=== PATIENT | female | born 1970 | race American Indian/Alaskan Native ===

== ENCOUNTER 2020-05-21 06:34 | Day surgery (SDC) | payer MEDICARE ==
[~2020-05-21 06:34] MED LIST: MIDAZOLAM 2 MG/2 ML INJ IV NR; SODIUM CHLORIDE 0.9% 1000 ML 1,000 ML IV SCH; fentaNYL 100 MCG/2 ML INJ IV PRN
[2020-05-21] MEDS ORDERED: DEXTROSE 50% IN WATER (25GM) 50 ML SYRINGE IV ONE (07:29)
[2020-05-21 07:41] LABS: Hematocrit 25.6 % (30.3-42.9); Hemoglobin 8.5 gm/dl (10.1-14.3); Mean Corpuscular HGB Conc 33 % (30-34); Mean Corpuscular Volume 86 fl (79-97); Platelet Count 149 K/mm3 (140-440); Red Blood Count 2.96 M/mm3 (3.65-5.03); Red Cell Distribution Width 17.1 % (13.2-15.2)
[2020-05-21 07:51] LABS: Calcium 9.1 mg/dL (8.4-10.2)
[2020-05-21] MEDS ORDERED: LIDOCAINE MPF (2%) 20 MG/1 ML VIAL 5 ML ONE (07:53)
[2020-05-21] MEDS ORDERED: fentaNYL 100 MCG/2 ML INJ ONE (07:53)
[2020-05-21] MEDS ORDERED: propofoL 200 MG/20 ML VIAL IV ONE (07:54)
[2020-05-21] MEDS ORDERED: fentaNYL 100 MCG/2 ML INJ IV PRN (08:15)
[2020-05-21] MEDS ORDERED: ONDANSETRON 4 MG/2 ML INJ IV PRN (08:15)
--- NOTE | 2020-05-21 08:15 | Anesthesia Consultation ---
Anesthesia Consult and Med Hx Date of service: 05/21/20 - Airway Anesthetic Teeth Evaluation: Good ROM Head & Neck: Adequate Mental/Hyoid Distance: Adequate Mallampati Class: Class III Intubation Access Assessment: Possibly Difficult - Pulmonary Exam CTA: Yes - Cardiac Exam Cardiac Exam: RRR - Pre-Operative Health Status ASA Pre-Surgery Classification: ASA3 Proposed Anesthetic Plan: General (Patient requests GA) - Pulmonary Hx Smoking: No Hx Asthma: Yes Hx Respiratory Symptoms: Yes (chronic bronchitis/cough; no recent change in symptoms) Home Oxygen Therapy: No Hx Sleep Apnea: Yes (no CPAP) - Cardiovascular System Hx Hypertension: No (on midodrine q2-3hrs for hypotension) Hx Heart Attack/AMI: No Hx Percutaneous Transluminal Coronary Angioplasty (PTCA): No Hx Cardia Arrhythmia: No - Central Nervous System CVA: No Hx Back Pain: Yes (AND NECK) Hx Psychiatric Problems: Yes - Gastrointestinal Hx Gastroesophageal Reflux Disease: No - Endocrine Hx End Stage Renal Disease: Yes (last HD 05/20/20) Hx Liver Disease: No Hx Insulin Dependent Diabetes: Yes Hx Thyroid Disease: No - Hematic Hx Anemia: Yes - Other Systems Hx Substance Use: Yes (THC) Hx Cancer: Yes (hx renal Ca) Hx Obesity: Yes (BMI 41) - Additional Comments Anesthesia Medical History Comments: No hx anesthetic complications. Hx hypercoagulable disorder, currently on eliquis.
--- NOTE | 2020-05-21 08:15 | Anesthesia Day of Surgery ---
Anesthesia Day of Surgery - Day of Surgery Patient Examined: Yes Patient H&P Reviewed: Yes Patient is NPO: Yes
[2020-05-21] MEDS ORDERED: LIDOCAINE (1%) 10 MG/1 ML VIAL 20 ML MDV ONE (10:05)
[2020-05-21] MEDS ORDERED: BUPIVACAINE/PF (0.5%) 5 MG/1 ML 10 ML VIAL INFILTRATI ONE ×2 (10:05→11:09)
[2020-05-21] MEDS ORDERED: SODIUM CHLORIDE 0.45% 0 ML IV ONE (10:06)
[2020-05-21] MEDS ORDERED: PAPAVERINE 60 MG/2 ML INJ SDV ONE (10:06)
[2020-05-21] MEDS ORDERED: PROTAMINE SULFATE 50 MG/5 ML INJ ONE (10:06)
[2020-05-21] MEDS ORDERED: SODIUM CHLORIDE P/F VIAL 10 ML 0 ML ONE (10:07)
[2020-05-21] MEDS ORDERED: SODIUM CHLORIDE 0.9% 250ML 250 ML ONE (10:07)
[2020-05-21] MEDS ORDERED: SODIUM BICARBONATE 2 MEQ/2 ML SYRINGE ONE (10:07)
[2020-05-21] MEDS ORDERED: rifAMPin 600 MG VIAL ONE (10:07)
[2020-05-21] MEDS ORDERED: HEPARIN 10,000 UNITS/10 ML VIAL ONE (10:07)
[2020-05-21] MEDS ORDERED: NITROGLYCERIN SYRINGE 3 ML ONE (10:08)
[2020-05-21] MEDS ORDERED: ePHEDrine SULFATE 50 MG/1 ML INJ ONE (10:38)
[2020-05-21] MEDS ORDERED: HEPARIN 10,000 UNITS/10 ML VIAL IV ONE (11:09)
[2020-05-21] MEDS ORDERED: SODIUM CHLORIDE 0.9% 250 ML IVPB IV ONE (11:09)
[2020-05-21] MEDS ORDERED: SODIUM CHLORIDE 0.9% IRR 1,500 ML BOTTLE IR ONE (11:09)
[2020-05-21] MEDS ORDERED: ONDANSETRON 4 MG/2 ML INJ ONE (12:28)
--- NOTE | 2020-05-21 12:36 | Short Stay Summary ---
Short Stay Documentation Date of service: 05/21/20 Narrative H&P: See H&P - History H&P: obtained from office - Allergies and Medications Current Medications: Allergies aspirin Allergy (Severe, Verified 05/20/20 12:48) Anaphylaxis bee venom protein (honey bee) Allergy (Severe, Verified 05/20/20 12:49) Anaphylaxis Penicillins Allergy (Severe, Verified 05/20/20 12:47) Anaphylaxis Sulfa (Sulfonamide Antibiotics) Allergy (Severe, Verified 05/20/20 12:48) Anaphylaxis ibuprofen [From Motrin] Adverse Reaction (Severe, Verified 05/19/20 15:51) Swelling PERCOCET-MAKES HER CRAZY Adverse Reaction (Intermediate, Uncoded 05/19/20 15:51) Unknown Home Medications Medication Instructions Recorded Confirmed Last Taken Type ALBUTEROL NEB's 1 dose IH PRN PRN 05/19/20 05/19/20 Unknown History ARIPiprazole [Abilify TAB] 5 mg PO HS 05/19/20 05/21/20 05/20/20 19:00 History Albuterol Sulfate [Proventil Hfa] 6.7 gm IH PRN PRN 05/19/20 05/19/20 Unknown History Calcitriol 5 cap PO TID 05/19/20 05/21/20 05/20/20 19:00 History Cinacalcet HCl [Sensipar] 1 tab PO QHS 05/19/20 05/21/20 05/20/20 19:00 History Cinacalcet HCl [Sensipar] 1 tab PO QHS 05/19/20 05/21/20 05/20/20 20:00 History Eliquis 5 mg PO BID 05/19/20 05/21/20 05/21/20 05:00 History Fludrocortisone [Florinef Tab] 0.2 mg PO BID 05/19/20 05/21/20 05/21/20 05:00 History Gabapentin 100 mg PO TID 05/19/20 05/21/20 05/20/20 19:00 History Heparin 3 units DAILY 05/19/20 05/21/20 05/20/20 09:00 History Humalog 3 units HEMOD-PORT HS 05/19/20 05/19/20 Unknown History Midodrine 15 mg PO TID 05/19/20 05/21/20 05/21/20 08:45 History Mirtazapine [Remeron] 30 mg PO QHS 05/19/20 05/21/20 05/20/20 19:00 History Pantoprazole 40 mg PO DAILY 05/19/20 05/21/20 05/20/20 09:00 History Renvela 3 tab PO TIDAC 05/19/20 05/21/20 05/20/20 19:00 History Symbicort 160-4.5 Mcg Inhaler 160 mg PO BID 05/19/20 05/21/20 05/20/20 18:00 History Vit B Comp No.3/Folic/C/Biotin 1 tab PO DAILY 05/19/20 05/21/20 05/20/20 09:00 History [Nydia-Binu Rx Tablet] Zyloprim 40 mg PO DAILY 05/19/20 05/21/20 05/20/20 09:00 History clonazePAM 2 mg PO TID 05/19/20 05/21/20 05/20/20 19:00 History Active Medications Fentanyl (Fentanyl 100 Mcg/2 Ml Inj) 100 mcg IV ONCE PRN PRN Reason: sedation for nerve block Stop: 05/21/20 23:59 Fentanyl (Fentanyl 100 Mcg/2 Ml Inj) 50 mcg IV Q5MIN PRN PRN Reason: Pain , Severe (7-10) Stop: 05/21/20 23:00 Clindamycin HCl (Cleocin 900 Mg/50 Ml) 900 mg in 50 mls @ 100 mls/hr IV PREOP DIAZ; Protocol Stop: 05/21/20 23:01 Sodium Chloride (Nacl 0.9% 1000 Ml) 1,000 mls @ 42 mls/hr IV DIRECT DIAZ Stop: 05/21/20 23:59 Last Admin: 05/21/20 07:45 Dose: 42 mls/hr Documented by: Midazolam HCl (Midazolam 2 Mg/2 Ml Inj) 2 mg IV PREOP NR Stop: 05/21/20 23:59 Last Admin: 05/21/20 08:55 Dose: 2 mg Documented by: Ondansetron HCl (Ondansetron 4 Mg/2 Ml Inj) 4 mg IV ONCE PRN PRN Reason: Nausea And Vomiting Stop: 05/21/20 18:00 - Brief post op/procedure progress note Date of procedure: 05/21/20 Pre-op diagnosis: End-Stage Renal Disease Post-op diagnosis: same Procedure: Creation of Left Kobe Arteriovenous Fistula Anesthesia: GETA Surgeon: LIZABETH STANFORD Estimated blood loss: 50-100ml Pathology: none Condition: stable - Disposition Condition at discharge: Good Disposition: DC-01 TO HOME OR SELFCARE Short Stay Discharge Plan Activity: other (No heavy lifting with left arm for 2 weeks. Use stress ball with left hand as often as possible.) Wound: open to air, keep clean and dry, other (Okay to wash the wound with soap and water but do not soak in water for 2 weeks.) Follow up with: LIZABETH STANFORD MD [Staff Physician] - 14 Days Prescriptions: HYDROcodone/APAP 7.5-325 [[place] 7.5/325] 1 each PO Q6HR PRN #30 tablet PRN Reason: Pain
--- NOTE | 2020-05-21 12:40 | Operative Report ---
Operative Report Operative Report: Date of procedure: 05/21/2020 Pre-operative diagnosis: End-Stage Renal Disease Post-operative diagnosis: End-Stage Renal Disease Procedure(s): Creation of Left Kobe Fistula Surgeon: Luis Felipe Chu MD Loop Puller: None Anesthesia: General Endotracheal Anesthesia EBL: Minimal Counts: Correct Complications: None Condition: Stable Findings: Successful creation of left arm AV fistula Specimen: None Indication: The patient is a 50-year-old female with a history of end-stage renal disease who is currently on hemodialysis through a right femoral permacath. She is in need of long-term dialysis access and was found to be a suitable candidate for creation of a left arm arteriovenous fistula. She was given the risk, benefits, and alternative procedures and consented to the procedure. Description of Procedure: The patient was brought to the operating room and laid in supine position after general endotracheal anesthesia was achieved his left arm was prepped and draped in normal sterile fashion. Longitudinal incision was then created on the distal wrist centered over the cephalic vein and a second incision was created in longitudinal fashion over the radial artery. The radial artery was dissected out circumferentially and controlled with vessel loops. The cephalic vein was then dissected out circumferentially, ligating side branches and dividing them, and then a tunnel was created to transpose it over to the radial artery. A 3 Escobar was then advanced through the cephalic vein proximally to ensure patency. The vein was then flushed with heparinized saline and control of the bulldog clamp. The radial artery vessel loops were put on tension occluding flow, and then an 11 blade and Marino scissors used to create an arteriotomy. An end-to-side anastomosis created between the cephalic vein and the radial artery using a single 6-0 Prolene in running fashion. Prior to completing the anastomosis I flushed the artery both retrograde and antegrade and advanced a 3 Escobar into the proximal portion of the artery to break the spasm. I then completed the anastomosis and removed all clamps allowing flow into the fistula which had an excellent thrill. I anesthetized wound using 0.5% Marcaine plain. Then closed the wounds in 2 layers using a 3-0 Vicryl running fashion the deep dermal layer, 4-0 Monocryl in a running fashion the subcuticular layer, and Surgicel as a dressing. The patient tolerated the procedure well, all sponge, needle, and instrument counts were correct, the patient was taken to recovery in stable condition.
[2020-05-21] MEDS ORDERED: HYDROcodone/ACETAMINOPHEN 7.5-325MG TAB ONE (12:49)
[2020-05-21] MEDS ORDERED: HYDROmorphone 1 MG/1 ML INJ ONE (12:49)
[2020-05-21] MEDS ORDERED: HYDROmorphone 1 MG/1 ML INJ IV PRN (12:55)
[2020-05-21] MEDS ORDERED: HEPARIN 10,000 UNIT/1 ML VIAL IV PRN (12:58)
[2020-05-21] MEDS ORDERED: HYDROcodone/ACETAMINOPHEN 7.5-325MG TAB PO ONE (13:07)
--- NOTE | 2020-05-21 13:21 | Post Anesthesia Evaluation ---
- Post Anesthesia Evaluation Patient Participated: Yes Airway Patent: Yes Stable Respiratory Function: Yes Nausea/Vomiting: No Temp > 96.8F: Yes Pain Manageable: Yes Adequeate Hydration: Yes Anesthesia Complications: No
[2020-05-21 19:14] VITALS: BP 112/58
== END 2020-05-21 06:35 | disposition home or self-care (01) ==
LOC: OR 06:34
PROVIDERS: ATTEND Surgery Vascular Surgery
DX: I12.0 Hypertensive chronic kidney disease with stage 5 chronic kidney disease or end stage renal disease (principal); E11.22 Type 2 diabetes mellitus with diabetic chronic kidney disease; N18.6 End stage renal disease; G43.909 Migraine, unspecified, not intractable, without status migrainosus; J45.909 Unspecified asthma, uncomplicated; M19.90 Unspecified osteoarthritis, unspecified site; G47.30 Sleep apnea, unspecified; E66.9 Obesity, unspecified; K21.9 Gastro-esophageal reflux disease without esophagitis; F32.9 Major depressive disorder, single episode, unspecified; F41.9 Anxiety disorder, unspecified; Z72.89 Other problems related to lifestyle; Z98.890 Other specified postprocedural states; Z68.41 Body mass index [BMI] 40.0-44.9, adult; Z87.440 Personal history of urinary (tract) infections
CPT/HCPCS: 36415; 36821; 80048; 82962; 85027; J1170; J1644; J2250; J2405; J2704; J3010; J7030; J7050; C1757; J2440; J2720; J3490

== ENCOUNTER 2020-06-15 16:15 | Emergency (ER) | payer MEDICARE ==
--- NOTE | 2020-06-15 16:41 | Event Note ---
ED Screening Note Date of service: 06/15/20 Time: 16:39 ED Screening Note: Patient complains of edema, chest pain, shortness of breath States she was sent here from her dialysis office for her symptoms, she did not have dialysis today Last dialysis was Sunday This initial assessment/diagnostic orders/clinical plan/treatment(s) is/are subject to change based on patients health status, clinical progression and re- assessment by fellow clinical providers in the ED. Further treatment and workup at subsequent clinical providers discretion. Patient/guardian urged not to elope from the ED as their condition may be serious if not clinically assessed and managed. Initial orders include: Labs EKG Chest x-ray
--- NOTE | 2020-06-15 17:34 | XRay Report ---
CHEST 2 VIEWS INDICATION / CLINICAL INFORMATION: Chest Pain. COMPARISON: None available. FINDINGS: SUPPORT DEVICES: None. HEART / MEDIASTINUM: No significant abnormality. LUNGS / PLEURA: There are low lung volumes bilaterally. No focal infiltrate is seen. No pneumothorax is seen. ADDITIONAL FINDINGS: No significant additional findings. IMPRESSION: 1. No acute findings. Signer Name: Riaz Oviedo MD Signed: 06/15/2020 5:30 PM Workstation Name: [id number]
[2020-06-15 19:19] VITALS: BP 142/89
[2020-06-15 19:21] LABS: Basophils # (Auto) 0.1 K/mm3 (0.0-0.1); Basophils % (Auto) 1.3 % (0.0-1.8); Eosinophils # (Auto) 0.3 K/mm3 (0.0-0.4); Eosinophils % (Auto) 3.2 % (0.0-4.3); Hematocrit 30.3 % (30.3-42.9); Hemoglobin 9.6 gm/dl (10.1-14.3); Lymphocytes # (Auto) 2.4 K/mm3 (1.2-5.4); Lymphocytes % (Auto) 22.5 % (13.4-35.0); Mean Corpuscular HGB Conc 32 % (30-34); Mean Corpuscular Volume 86 fl (79-97); Monocytes # (Auto) 0.6 K/mm3 (0.0-0.8); Monocytes % (Auto) 5.7 % (0.0-7.3); Platelet Count 176 K/mm3 (140-440); Red Blood Count 3.51 M/mm3 (3.65-5.03)
[2020-06-15 19:46] LABS: Alanine Aminotransferase 17 units/L (7-56); Albumin 3.9 g/dL (3.9-5); Blood Urea Nitrogen 39 mg/dL (7-17); Calcium 9.3 mg/dL (8.4-10.2); Hemolysis Index 31
[2020-06-15 19:47] LABS: BUN/Creatinine Ratio 3; Bilirubin,Direct < 0.2 mg/dL (0-0.2)
== END 2020-06-15 19:00 | disposition left against medical advice (07) ==
LOC: ED 16:15
DX: R06.02 Shortness of breath (principal); R07.89 Other chest pain; Z53.21 Procedure and treatment not carried out due to patient leaving prior to being seen by health care provider
CPT/HCPCS: 36415; 71046; 80048; 80076; 84484; 85025; 93005

== ENCOUNTER 2020-11-24 06:02 | Day surgery (SDC) | payer MEDICARE ==
[~2020-11-24 06:02] MED LIST changes: +BUPIVACAINE/PF (0.5%) 5 MG/1 ML 30 ML VIAL INFILTRATI ONE; +HEPARIN 10,000 UNITS/10 ML VIAL IV ONE; -MIDAZOLAM 2 MG/2 ML INJ IV NR; +SODIUM CHLORIDE 0.9% IRR 1,500 ML BOTTLE IR ONE; +SODIUM CHLORIDE 0.9% IRR 500 ML BOTTLE IR ONE; -fentaNYL 100 MCG/2 ML INJ IV PRN
--- NOTE | 2020-11-24 07:14 | Anesthesia Consultation ---
Anesthesia Consult and Med Hx Date of service: 11/24/20 - Airway Anesthetic Teeth Evaluation: Good ROM Head & Neck: Adequate Mental/Hyoid Distance: Adequate Mallampati Class: Class II Intubation Access Assessment: Possibly Difficult - Pulmonary Exam CTA: Yes - Cardiac Exam Cardiac Exam: RRR - Pre-Operative Health Status ASA Pre-Surgery Classification: ASA4 Proposed Anesthetic Plan: General - Pulmonary Hx Smoking: No Hx Asthma: Yes Hx Respiratory Symptoms: Yes (chronic bronchitis/cough; no recent change in symptoms) COPD: No Hx Pneumonia: Yes (2014) Hx Sleep Apnea: Yes (PT STATES SHE DOES. NOT ON CPAP. ) - Cardiovascular System Hx Hypertension: No (on midodrine q2-3hrs for hypotension) Hx Heart Attack/AMI: No Hx Percutaneous Transluminal Coronary Angioplasty (PTCA): No Hx Cardia Arrhythmia: No Hx Pacemaker: No Hx Internal Defibrillator: No Hx Heart Murmur: Yes - Central Nervous System Hx Seizures: No CVA: No Hx Back Pain: Yes (AND NECK) Hx Psychiatric Problems: Yes - Gastrointestinal Hx Gastroesophageal Reflux Disease: No - Endocrine Hx End Stage Renal Disease: Yes Hx Cirrhosis: No Hx Liver Disease: No Hx Insulin Dependent Diabetes: Yes Hx Thyroid Disease: No - Hematic Hx Anemia: Yes Hx Sickle Cell Disease: No - Other Systems Hx Alcohol Use: No Hx Substance Use: No Hx Cancer: Yes Hx Obesity: Yes (BMI 41)
--- NOTE | 2020-11-24 07:15 | Anesthesia Day of Surgery ---
Anesthesia Day of Surgery - Day of Surgery Patient Examined: Yes Patient H&P Reviewed: Yes Patient is NPO: Yes
[2020-11-24] MEDS ORDERED: HEPARIN 10,000 UNITS/10 ML VIAL ONE (07:18)
[2020-11-24] MEDS ORDERED: LIDOCAINE (1%) 10 MG/1 ML VIAL 20 ML MDV ONE (07:18)
[2020-11-24] MEDS ORDERED: BUPIVACAINE/PF (0.5%) 5 MG/1 ML 30 ML VIAL INFILTRATI ONE ×3 (07:18→09:28)
[2020-11-24] MEDS ORDERED: SODIUM CHLORIDE 0.9% 500 ML 500 ML ONE (07:18)
[2020-11-24 07:21] LABS: Hematocrit 32.5 % (30.3-42.9); Hemoglobin 10.5 gm/dl (10.1-14.3); Mean Corpuscular HGB Conc 32 % (30-34); Mean Corpuscular Volume 89 fl (79-97); Platelet Count 217 K/mm3 (140-440); Red Blood Count 3.65 M/mm3 (3.65-5.03)
[2020-11-24 07:23] LABS: Red Cell Distribution Width 20.5 % (13.2-15.2)
[2020-11-24] MEDS ORDERED: SODIUM CHLORIDE 0.9% 250ML 0 ML ONE (07:45)
[2020-11-24] MEDS ORDERED: rifAMPin 600 MG VIAL ONE (07:45)
--- NOTE | 2020-11-24 08:14 | Short Stay Summary ---
Short Stay Documentation Date of service: 11/24/20 Narrative H&P: The patient is a 50-year-old female with a history of end-stage renal disease who had a creation of a left Kobe arteriovenous fistula. The fistula was created May 21, 2020 however despite multiple interventions to assist with maturation of the fistula they have been unable to consistently access the fistula in the dialysis center. She continues to use her right internal jugular permacath for dialysis access. She is in need of revision with elevation to assist with ease of accessing the fistula. She has no additional complaints at this time. - History Past Medical History: anemia, diabetes, dialysis, DVT, ESRD, GERD, other (Hypercoagulability disorder, anemia) Past Surgical History: Other (Creation of multiple arteriovenous fistulas, multiple permacath insertions, multiple percutaneous interventions on her dialysis access) Social history: no significant social history - Allergies and Medications Current Medications: Allergies aspirin Allergy (Severe, Verified 11/18/20 14:16) Anaphylaxis bee venom protein (honey bee) Allergy (Severe, Verified 11/18/20 14:16) Anaphylaxis Penicillins Allergy (Severe, Verified 11/18/20 14:16) Anaphylaxis Sulfa (Sulfonamide Antibiotics) Allergy (Severe, Verified 11/18/20 14:16) Anaphylaxis ibuprofen [From Motrin] Adverse Reaction (Severe, Verified 11/18/20 14:16) Swelling PERCOCET-MAKES HER CRAZY Adverse Reaction (Intermediate, Uncoded 05/19/20 15:51) Unknown Home Medications Medication Instructions Recorded Confirmed Last Taken Type ALBUTEROL NEB's 1 dose IH PRN PRN 05/19/20 11/18/20 Unknown History Albuterol Sulfate [Proventil Hfa] 6.7 gm IH PRN PRN 05/19/20 11/18/20 Unknown History Calcitriol 5 cap PO TID 05/19/20 11/18/20 05/20/20 19:00 History Cinacalcet HCl [Sensipar] 1 tab PO QHS 05/19/20 11/18/20 05/20/20 20:00 History Eliquis 5 mg PO BID 05/19/20 11/18/20 05/21/20 05:00 History Gabapentin 100 mg PO TID 05/19/20 11/18/20 05/20/20 19:00 History Humalog 3 units HEMOD-PORT HS 05/19/20 11/18/20 Unknown History Midodrine 15 mg PO TID 05/19/20 11/18/20 05/21/20 08:45 History Mirtazapine [Remeron] 45 mg PO QHS 05/19/20 11/18/20 05/20/20 19:00 History Renvela 3 tab PO TIDAC 05/19/20 11/18/20 05/20/20 19:00 History Symbicort 160-4.5 Mcg Inhaler 160 mg PO BID 05/19/20 11/18/20 05/20/20 18:00 History Vit B Comp No.3/Folic/C/Biotin 1 tab PO DAILY 05/19/20 11/18/20 05/20/20 09:00 History [Nydia-Binu Rx Tablet] clonazePAM 2 mg PO TID 05/19/20 11/18/20 05/20/20 19:00 History HYDROcodone/APAP 7.5-325 [[place] 1 each PO Q6HR PRN #30 tablet 05/21/20 11/18/20 Unknown Rx 7.5-325 mg TAB] Hydrocortisone [Anucort-HC SUPPOS] 25 mg ND Q12H PRN #14 supp.rect 09/24/20 11/18/20 Unknown Rx Pantoprazole [Protonix TAB] 40 mg PO DAILY #30 tablet 09/24/20 11/18/20 Unknown Rx Citalopram Hydrobromide [celeXA] 40 mg PO DAILY 11/18/20 11/18/20 Unknown History Ergocalciferol (Vitamin D2) 1.25 mcg PO 1XW 11/18/20 11/18/20 Unknown History [Vitamin D2] Fludrocortisone [Florinef] 0.1 mg PO BID 11/18/20 11/18/20 Unknown History Active Medications Sodium Chloride (Nacl 0.9% 1000 Ml) 1,000 mls @ 42 mls/hr IV DIRECT DIAZ Clindamycin HCl (Cleocin 900 Mg/50 Ml) 900 mg in 50 mls @ 100 mls/hr IV PREOP NR; Protocol Stop: 11/24/20 20:00 - Physical exam General appearance: no acute distress Lungs: Normal air movement Breasts: other (Right upper chest wall permacath without evidence of infection) Gastrointestinal: normal Female Genitourinary: deferred Rectal Exam: deferred Extremities: abnormal (Left forearm fistula with palpable thrill) - Brief post op/procedure progress note Date of procedure: 11/24/20 Pre-op diagnosis: Complications of Dialysis Access Post-op diagnosis: same Procedure: Revision with Elevation of Left Radiocephalic Arteriovenous Fistula Anesthesia: MAC, regional Surgeon: LIZABETH STANFORD Estimated blood loss: other (200 mL) Pathology: none Condition: stable - Disposition Condition at discharge: Good Disposition: DC-01 TO HOME OR SELFCARE Short Stay Discharge Plan Activity: other (No heavy lifting with left arm for 2 weeks.) Wound: open to air, keep clean and dry, other (Okay to wash the left arm wound with soap and water but do not soak in water for 2 weeks.) Follow up with: LIZABETH STANFORD MD [Staff Physician] - 14 Days Prescriptions: Oxycodone HCl/Acetaminophen [Percocet 7.5/325 mg] 1 each PO Q6HR PRN #40 tablet PRN Reason: Pain
[2020-11-24] MEDS ORDERED: MIDAZOLAM 2 MG/2 ML INJ ONE (08:20)
[2020-11-24] MEDS ORDERED: KETAMINE/STERILE WATER 50 MG/ML SYRINGE ONE (08:20)
[2020-11-24] MEDS ORDERED: ePHEDrine SULFATE 50 MG/1 ML INJ ONE (09:19)
[2020-11-24] MEDS ORDERED: SODIUM CHLORIDE 0.9% IRR 1,500 ML BOTTLE IR ONE (09:28)
[2020-11-24] MEDS ORDERED: SODIUM CHLORIDE 0.9% IRR 500 ML BOTTLE IR ONE (09:28)
[2020-11-24] MEDS ORDERED: HEPARIN 10,000 UNITS/10 ML VIAL IV ONE (09:28)
--- NOTE | 2020-11-24 11:27 | Operative Report ---
Operative Report Operative Report: Date of Procedure: 11/25/2019 Pre-operative Diagnosis: Complications of Dialysis Access Post-operative Diagnosis: Same Procedure(s): 1. Revision with Elevation of Left Radiocephalic Arteriovenous Fistula Surgeon: Luis Felipe Chu M.D. Proposal Editor: Basilio Anesthesia: Regional/MAC EBL: 200 mL Counts: Correct Complications: None Condition: Stable Findings: Fistula was elevated without evidence of tension at the completion of the case. Specimen: None Indication: The patient is a 50-year-old female with a history of end-stage renal disease who is currently on hemodialysis through a right internal jugular permacath. She had creation of a left Kobe fistula that is too deep to access and requires elevation. She has been given the risk, benefits, and alternative procedures and consented to the procedure. Description of Procedure: Prior to being transported to the operating room the patient had a regional block performed in the preoperative area. After receiving the regional block the patient was transported to the operating room and laid in supine position. She was sedated and then her left arm was prepped and draped in normal sterile fashion. Ultrasound was used to identify the fistula in the forearm and the center of the fistula was marked with a marking pen. An incision was created medial to the fistula, using a 10 blade, extending from just proximal to the arterial anastomosis to approximately 6 cm distal to the antecubital crease. The incision was carried down to the fistula using sharp dissection and the fistula was dissected circumferentially throughout the length of the incision ensuring that all side branches were suture ligated and divided. Once the fistula had been dissected circumferentially in all side branches have been ligated a subcutaneous pocket was created on the lateral incision flat using cautery. The fistula was then placed within the pocket and 3-0 Vicryl in interrupted fashion was used to secure the fistula within the pocket. Hemostasis within the wound was then achieved with a combination of Quick Clot and cautery. Once hemostasis was achieved the wound was closed in 2 layers using 3-0 Vicryl running fashion the deep dermal layer and 4-0 Monocryl in running fashion the subcuticular layer and then dressed with Dermabond. The patient tolerated the procedure well. All sponge, needle, and instrument counts were correct. The patient was taken to the recovery area in stable condition.
[2020-11-24] MEDS ORDERED: HEPARIN 10,000 UNIT/1 ML VIAL IV ONE (12:00)
[2020-11-24 14:34] VITALS: BP 103/52
--- NOTE | 2020-11-24 15:47 | Post Anesthesia Evaluation ---
- Post Anesthesia Evaluation Patient Participated: Yes Airway Patent: Yes Stable Respiratory Function: Yes Nausea/Vomiting: No Temp > 96.8F: Yes Pain Manageable: Yes Adequeate Hydration: Yes Anesthesia Complications: No Block Receding Appropriately: Yes Patient on Ventilator: No
== END 2020-11-24 14:25 | disposition home or self-care (01) ==
LOC: OR 06:02
PROVIDERS: ATTEND Surgery Vascular Surgery
DX: T82.898A Other specified complication of vascular prosthetic devices, implants and grafts, initial encounter (principal); G43.909 Migraine, unspecified, not intractable, without status migrainosus; I13.2 Hypertensive heart and chronic kidney disease with heart failure and with stage 5 chronic kidney disease, or end stage renal disease; E11.22 Type 2 diabetes mellitus with diabetic chronic kidney disease; I50.9 Heart failure, unspecified; N18.6 End stage renal disease; J45.909 Unspecified asthma, uncomplicated; G47.30 Sleep apnea, unspecified; E66.9 Obesity, unspecified; K21.9 Gastro-esophageal reflux disease without esophagitis; M19.90 Unspecified osteoarthritis, unspecified site; F32.9 Major depressive disorder, single episode, unspecified; F41.9 Anxiety disorder, unspecified; D64.9 Anemia, unspecified; Z88.6 Allergy status to analgesic agent; Z88.0 Allergy status to penicillin; Z88.2 Allergy status to sulfonamides; Z88.8 Allergy status to other drugs, medicaments and biological substances; Z91.030 Bee allergy status; Z79.899 Other long term (current) drug therapy; Z86.718 Personal history of other venous thrombosis and embolism; Z87.01 Personal history of pneumonia (recurrent); Z98.891 History of uterine scar from previous surgery; Z87.440 Personal history of urinary (tract) infections; Z90.5 Acquired absence of kidney; Z91.81 History of falling; Z98.890 Other specified postprocedural states; Y82.8 Other medical devices associated with adverse incidents; Y92.89 Other specified places as the place of occurrence of the external cause
CPT/HCPCS: 36415; 36832; 64415; 80048; 82962; 85027; J1644; J2250; J3490; J7030; J7040; 64450; J7050